=== PATIENT | male | born 1940 | race Caucasian/White ===

== ENCOUNTER 2018-07-22 16:43 | Inpatient (IN) | payer OTHER, MEDICAID ==
--- NOTE | 2018-07-22 17:45 | ED Physician Chart ---
ED Chief Complaint/HPI - Patient Information Date Seen:: 07/22/18 Time Seen:: 17:20 Chief Complaint:: altered mental status History of Present Illness:: For last 2 weeks patient's had insomnia. He's been dizzy and clumsy but has not fallen. According to his daughter he appears slightly confused also. 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 He says he cannot sleep because his mind is racing. Dr. Carreno sent the patient directly here from her office. Allergies:: Allergies Allergy/AdvReac Type Severity Reaction Status Date / Time No Known Allergies Allergy Verified 07/22/18 17:00 Vitals:: Vital Signs - 8 hr 07/22/18 17:02 Temp 99.4 F HR 84 RR 16 BP 172/00 O2 Sat % 97 Historian:: Patient, Family Member Review:: Nurse's Note Reviewed ED Review of Systems - Review of Systems General/Constitutional: No fever, No chills Skin: No skin lesions Head: No headache Eyes: No loss of vision ENT: No earache Neck: No neck pain, No swelling Cardio Vascular: No chest pain Pulmonary: SOB GI: No nausea, No vomiting, No diarrhea Musculoskeletal: No back pain, No muscle pain Psychiatric: Prior psych history Hematopoietic: No bruising Allergic/Immuno: No urticaria Neurological: No syncope ED Past Medical History - Past Medical History Past Medical History: Other (anxiety and depression) Family History: None Social History: Non Smoker, No Alcohol Surgical History: other (thyroidectomy; right knee replacement; cataract surgery right eye) Psychiatricy History: Depression, Other (anxiety) Medication: Reviewed Family Medical History - Family Member Mother History Unknown: Yes ED Physical Exam - Physical Examination General/Constitutional: Awake, Well-developed, well-nourished, Alert Other Gen/Cons comments:: Patient is alert and oriented to the correct month and year but not the date Head: Atraumatic Eyes: Lids, conjuctiva normal Other Eyes comments:: Right eyes status post cataract surgery Skin: Nl inspection, No rash, No skin lesions, No ecchymosis ENMT: External ears, nose nl, Nasal exam nl, Oropharynx nl Other ENMT comments:: Poor dental hygiene Neck: No nuchal rigidity Respiratory: Nl effort/Exclusion, Clear to Auscultation, No Wheeze/Rhonchi/Rales Cardio Vascular: RRR, No murmur, gallop, rubs GI: No tenderness/rebounding/guarding, No organomegaly, No hernia, Nondistended , No mass/bruits Extremities: Normal digits & nails Neuro/Psych: Alert/oriented, No focal deficits Other Neuro/Psych comments:: Strong equal hand grasp; finger to nose test intact ED Labs/Radiology/EKG Results - Lab Results Results: Laboratory Results - last 24 hr 07/22/18 07/22/18 07/22/18 17:45 17:45 17:45 WBC 6.8 RBC 4.16 Hgb 13.5 Hct 39.8 L MCV 95.6 MCH 32.3 H MCHC Differential 33.8 RDW 12.1 Plt Count 290 MPV 7.2 Neutrophils % 80.7 H Lymphocytes % 12.0 L Monocytes % 6.1 Eosinophils % 0.5 Basophils % 0.7 Sodium 136 Potassium 3.8 Chloride 104 Carbon Dioxide 22.8 Anion Gap 13.0 BUN 24 Creatinine 1.0 Est GFR ( Amer) TNP Est GFR (Non-Af Amer) TNP BUN/Creatinine Ratio 24.0 Glucose 178 H Calcium 9.6 Total Bilirubin 0.4 AST 18 ALT 15 Alkaline Phosphatase 51 Troponin I Total Protein 6.7 Albumin 4.0 L Globulin 2.7 Albumin/Globulin Ratio 1.5 Triglycerides 102 Cholesterol 160 LDL Cholesterol Direct 98 HDL Cholesterol 50 TSH 1.27 07/22/18 17:45 WBC RBC Hgb Hct MCV MCH MCHC Differential RDW Plt Count MPV Neutrophils % Lymphocytes % Monocytes % Eosinophils % Basophils % Sodium Potassium Chloride Carbon Dioxide Anion Gap BUN Creatinine Est GFR ( Amer) Est GFR (Non-Af Amer) BUN/Creatinine Ratio Glucose Calcium Total Bilirubin AST ALT Alkaline Phosphatase Troponin I 0.01 Total Protein Albumin Globulin Albumin/Globulin Ratio Triglycerides Cholesterol LDL Cholesterol Direct HDL Cholesterol TSH - Radiology Results Results: CT head showed atrophy only - EKG Interpretations Rate & Rhythm: normal sinus rhythm with a rate of 71 [place]: normal axis ED Septic Shock - . Is Septic Shock (SBP<90, OR Lactate>4 mmol\L) present?: No - <6hrs of presentation: Vital Signs: Vital Signs - 8 hr 07/22/18 17:02 Temp 99.4 F HR 84 RR 16 BP 172/00 O2 Sat % 97 ED Reassessment (Disposition) - Reassessment Reassessment:: Patient given authorization by his HMO to be admitted to [facility] [facility]. I spoke to Dr. Kinney who said the consult should be to the psychiatrist whom the patient waants who is Dr. Perla Reassessment Condition:: Unchanged - Diagnosis Diagnosis:: Insomnia; altered mental status; hyperglycemia; probable new-onset diabetes - Patient Disposition Admitted to:: [facility] Spoke to:: Meek Kinney Admitting Medical Physician:: Meek Kinney Admitting Psych Physician:: Leanna Perla Condition at Disposition:: Stable, Unchanged
[2018-07-22 17:54] LABS: % BASOPHILS 0.7 % (0.0-2.0); % EOSINOPHILS 0.5 % (0.0-5.0); % MONOCYTES 6.1 % (2.0-10.0); % NEUTROPHILS 80.7 % (40.0-80.0); HEMATOCRIT 39.8 % (41.0-60); HEMOGLOBIN 13.5 gm/dL (12-16); LYMPHOCYTE ABSOLUTE 0.8 Th/cmm (1.5-3.0); MEAN CELL VOLUME 95.6 fl (80-99); MEAN CORPUSCULAR HEMOGLOBIN 32.3 pg (27.0-31.0); MEAN CORPUSCULAR HGB CONC 33.8 pg (28.0-36.0); MEAN PLATELET VOLUME 7.2 fl; MONOCYTE ABSOLUTE 0.4 Th/cmm (0.3-1.0); NEUTROPHILE ABSOLUTE 5.6 Th/cmm (1.8-8.0); PLATELET COUNT 290 Th/cmm (150-400); RED BLOOD COUNT 4.16 Mil/cmm (3.80-5.80); RED CELL DISTRIBUTION WIDTH 12.1 % (11.5-20.0); WHITE BLOOD COUNT 6.8 Th/cmm (4.8-10.8)
[2018-07-22 18:11] LABS: ALB/GLOB RATIO 1.5 (1.0-1.8); ALKALINE PHOSPHATASE 51 U/L (34-104); BILIRUBIN,TOTAL 0.4 mg/dL (0.3-1.0); BUN - UREA NITROGEN 24 mg/dL (7-25); CALCIUM SERUM 9.6 mg/dL (8.6-10.3); CARBON DIOXIDE 22.8 mEq/L (21.0-31.0); CHLORIDE 104 mEq/L (98-107); CHOLESTEROL 160 mg/dL (<200); GLUCOSE 178 mg/dL (70-105); HDL -HIGH DENSITY LIPOPROTEIN 50 mg/dL (23-92); POTASSIUM SERUM 3.8 mEq/L (3.5-5.1); SGOT 18 U/L (13-39); SGPT/ALT 15 U/L (7-52); SODIUM SERUM 136 mEq/L (136-145); TOTAL PROTEIN,SERUM 6.7 gm/dL (6.0-8.3); TRIGLYCERIDES 102 mg/dL (<150)
[2018-07-22 22:01] VITALS: BP 139/62
[2018-07-22] MEDS ORDERED: Maalox 30 mL Cup PO PRN (22:26)
[2018-07-22] MEDS ORDERED: Magnesium Hydroxide (MOM) 30 mL UDC PO PRN (22:26)
[2018-07-23] MEDS: Multivitamin Tab PO SCH (08:25)
--- NOTE | 2018-07-23 08:52 | Diagnostic Imaging Report ---
CT scan of the brain without intravenous contrast HISTORY: Altered mental status Total DLP equals 723 CTDI equals 38.7 Axial sections were obtained from the base of the skull to the vertex. There is prominence/enlargement of the ventricular system size. Associated enlargement of cerebral sulci and subarachnoid cisterns. Findings are consistent with changes of generalized cerebral atrophy. No acute parenchymal abnormalities. No acute cerebral hemorrhage. Hypodensity is seen within the supratentorial white matter regions without mass effect. The findings may be associated with chronic small vessel ischemic disease. No extra-axial masses or abnormal fluid collections. IMPRESSION: 1. No acute abnormalities 2. Cerebral atrophy 3. Supratentorial white matter changes that may reflect chronic small vessel ischemic disease
--- NOTE | 2018-07-23 11:31 | History & Physical ---
ADMIT DATE: 07/22/2018 IDENTIFYING INFORMATION: This is a 78-year-old male. CHIEF COMPLAINT: "I have not been sleeping." REASON FOR ADMISSION: The patient was sent from my office because of confusion, probably delirium. HISTORY OF PRESENT ILLNESS: The patient was seen in my office today, came with his daughter for the first time. I have been seeing her for the past few years. Apparently, he has been sleeping well and apparently he saw his medical doctor the day before give him melatonin. He was able to sleep, but his mind keeps racing and this information was mainly by his daughter. The patient sat in the office for almost half an hour, could not make sense. He has been dizzy, clumsy. He has been confused, was unable to tell me the date, unable to work for the last 2 weeks. He denies any auditory or visual hallucinations. The patient was sent to the Emergency Room. I talked to Dr. kramer and told him that he was notacting right,not the same person that I knew him, but he was acting very weird and unable to participate in a meaningful conversation. He would go rambles, cannot give any information or tell me the date, where he is, why he is here. PAST PSYCHIATRIC HISTORY: Bipolar disorder, has been seeing this patient for a while, has been on Seroquel. MEDICAL HISTORY: The patient was cleared by Dr. kramer apparently had a CT scan of the head that showed chronic ischemic changes of the brain and cerebral atrophy. ALLERGIES: He has no known drug allergies. He had the lab work that showed low hematocrit and low MCH. However, his hemoglobin was within normal range and red cells. He has high neutrophil, low lymphocytes. Chemistry panel with high blood sugar and low albumin. TSH within normal range. The patient was on Seroquel, but however, stopped taking it. Start taking melatonin. FAMILY AND SOCIAL HISTORY: The patient is . 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 He continues to work, has not worked in the past 2 weeks. Apparently, the patient has a stressor of having to live in a trailer with 9 people lived there. Apparently, his daughter and his children live with them, has been very stressful for him. Denies any substance abuse. No history of abuse, and this is from my evaluation form in the office today, was unable to tell me much information. MENTAL STATUS EXAMINATION: The patient is appropriately dressed, not well groomed. He was alert, unable to tell me the date, where he is, why he is here. Apparently in the process of being very restless overnight. He_apparently ende up cutting few of his toenails by smashing foot in the door and they have been investigating it. He is unable to participate in meaningful conversation. He is confused, unable to tell me the date, where he is, why he is here. His insight about his illness is poor, does not realize that his problem. Judgment is poor with his behavior. IMPRESSION: AXIS I: Psychosis, not otherwise specified, bipolar disorder with psychosis. MEDICAL DIAGNOSIS: Deferred to the medical doctor. His assets, he is at the same treatment. Negative poor coping skills. INITIAL TREATMENT PLAN: The patient will be started on Depakote. We will do group therapy, milieu therapy, and individual therapy. ESTIMATED LENGTH OF STAY: 7-10 days. DISCHARGE CRITERIA: Decrease agitation, psychosis after discharge, outpatient treatment. JOB# [id number] [facility]
--- NOTE | 2018-07-23 20:38 | History & Physical ---
ADMIT DATE: PATIENT IDENTIFICATION: A 78-year-old male. CHIEF COMPLAINT: "Doctor I have trouble falling asleep." HISTORY OF PRESENT ILLNESS: A 78-year-old [place]ron[place] male, who has been followed by myself in my office. Also, he has significant psychotic illness. He has been followed by psychiatrist, seen by Dr. Marinelli in her office, and the patient was complaining about the patient was unable to sleep and having period of agitation. The patient was sent to Emergency Room. The patient was seen by Emergency Room MD. The patient was medically cleared and now transferred to Geropsych unit. PAST MEDICAL HISTORY: Remarkable for: 1. DJD. 2. Psychotic disorder. 3. Hypertension. MEDICATIONS AT HOME: Seroquel. ALLERGIES: None. SOCIAL HISTORY: The patient lives with family. No history of smoking cigarette, alcohol, or drug use. FAMILY MEDICAL HISTORY: Remarkable for hypertension and coronary artery disease. PAST SURGICAL HISTORY: Remarkable for cataract surgery as well as knee replacement and the patient also has previous history of thyroidectomy. REVIEW OF SYSTEMS: The patient denies any headache, blurred vision, double vision, dysphagia, odynophagia, runny nose, stuffy nose, fever, chills, cough, chest pain, shortness of breath, palpitation, dizziness, nausea, vomiting, diarrhea, dysuria, hematuria, hematochezia, or melena. No seizure or syncopal episode. PHYSICAL EXAMINATION: GENERAL: Alert, awake, oriented, lying in the bed without any acute distress. VITAL SIGNS: Temperature 98.1, pulse 73, respiratory rate 18, blood pressure 130/70. HEENT: Normocephalic, atraumatic. Extraocular muscles are intact. Tongue were pink and coated. Poor dentition noted. No oral, no exudate, no sinus tenderness. NECK: Supple, no JVD, no hepatojugular reflex. No lymphadenopathy, thyromegaly or carotid bruit. HEART: Both heart sounds are regular. No S3, no S4, no murmur. CHEST AND LUNGS: Equal in expansion, no expiratory wheezing. ABDOMEN: Soft. No guarding, no rigidity. Liver and spleen palpable. No palpable mass. EXTREMITIES: No edema, no cyanosis, no clubbing. . No calf tenderness noted. . NEUROLOGIC: Nonfocal. CLINICAL IMPRESSION: 1. Psychotic disorder. 2. Insomnia. 3. History of cataract surgery and knee surgery. 4. Hypertension, currently normotensive. 5. Degenerative joint disease. PLAN: 1. Psychotic evaluation and management deferred to psychiatrist. 2. The patient is medically stable to participate in the activity provided by Geropsych Unit. 3. The patient has been advised to follow upon discharge in my office. 4. Care plan reviewed and discussed with staff. [facility]# [id number]
[2018-07-24] MEDS: Multivitamin Tab PO SCH (08:37)
[2018-07-24] MEDS: OLANZapine 5 mg Oral Disintegrating Tab PO SCH (20:53)
[2018-07-25] MEDS: Multivitamin Tab PO SCH (09:14)
--- NOTE | 2018-07-25 18:23 | Progress Notes ---
DATE: 07/24/2018 SUBJECTIVE: The patient was seen and evaluated. The patient's chart reviewed. Covering for Dr. Marinelli. IDENTIFYING DATA: A 78-year-old male. HISTORY OF PRESENT ILLNESS: He was brought in initially by his mother for the first time. Recently, the patient has been found to have racing thoughts, disorganized, and unable to engage in linear conversation. In the hospital course, the patient will be started on Zyprexa and also on Depakote. Today on [id number] evaluation, the patient reports he has not been sleeping well and his thoughts are just racing thoughts and feels distraught and overwhelmed. CURRENT MEDICATION: The patient is on Ativan q. 4 hours as needed, olanzapine 5 mg p.o. at bedtime, Ambien as needed, and Depakote 250 mg p.o. b.i.d. MENTAL STATUS EXAMINATION: Racing thoughts, pressured speech, poor insight, and judgment. ASSESSMENT AND PLAN: The patient is 78-year-old male, who presents in a manic state. We will continue with the current medication regimen, which was recently initiated in the last 24 hours at the start of the patient's symptoms. JOB# [id number]
[2018-07-25] MEDS: OLANZapine 5 mg Oral Disintegrating Tab PO SCH (21:11)
--- NOTE | 2018-07-26 02:45 | Progress Notes ---
DATE: 07/25/2018 Covering for [facility]. Today on [id number] evaluation, the patient continues to derail in conversation, racing thoughts, irritable, agitated. MENTAL STATUS EXAMINATION: Still with flight of ideas, poor sleep, insomnia. ASSESSMENT AND PLAN: The patient is a 78-year-old with manic episode tolerating the recent augmentation of the Depakote and olanzapine without complications or side effects. The patient will continue with the current medication regimen as he continues to be in steady state and check Depakote levels in the next 24-48 hours. JOB# [id number]
[2018-07-26] MEDS: Multivitamin Tab PO SCH (08:56)
--- NOTE | 2018-07-26 20:47 | Progress Notes ---
DATE: 07/26/2018 Case was discussed with staff of the patient, reviewed records. The patient continues to be unable to carry a conversation and make sense. Continues to be rambling. Continues to be unpredictable, impulsive, unable to tell me how much he slept. The staff reports he slept better. He continues to have racing thoughts. I will be increasing his Zyprexa dose to 7.5 mg at bedtime to improve his psychotic symptoms and manic symptoms and so far no side effects to the medications, no sedation, no nausea, no extrapyramidal symptoms. His lab work showed low hematocrit, low MCH, high neutrophils and low lymphocytes, the rest within normal range. Chemistry found with high blood sugar, low albumin, the rest within normal range. TSH within normal range. We will continue outpatient group therapy, milieu therapy, adjust the medication as needed. JOB# [id number]
[2018-07-26] MEDS ORDERED: OLANZapine 5 mg Oral Disintegrating Tab PO SCH (21:00)
[2018-07-27] MEDS: Multivitamin Tab PO SCH (09:00)
--- NOTE | 2018-07-28 02:06 | Discharge Summary ---
DATE OF DISCHARGE: 07/27/2018 Age: 78. SEX: Male. PHYSICIAN: Dr. Johnson. FINAL DIAGNOSIS/PRIMARY DIAGNOSIS: Unspecified psychosis. SECONDARY DIAGNOSIS: Dementia, moderate, with psychotic features. REASON FOR HOSPITALIZATION: The patient was admitted to the hospital because of increased paranoia and increased psychosis. The patient also was agitated and was not able to follow directions at home. HOSPITAL COURSE: The patient continued to be suspicious and paranoid. Dr. Marinelli adjusted his psychotropic medications. The patient was less irritable and less agitated and he was cooperative and compliant with taking his medications. It also was easier to redirect him and the patient was discharged from the hospital. Physical exam of the patient came basically as mentioned on the axis 3 of final diagnosis. Blood workup was also basically within normal. EXPECTED OUTCOME AFTER DISCHARGE: Fair if the patient continues to take his medications and follow up with discharge plans. [facility]# [id number]
== END 2018-07-27 18:30 | disposition home or self-care (01) | DRG 885 ==
LOC: ER 16:43 → GERO2 20:40
PROVIDERS: ADMIT Psychiatry & Neurology Psychiatry; ATTEND Psychiatry & Neurology Psychiatry
DX: F31.9 Bipolar disorder, unspecified (principal); F03.91 Unspecified dementia, unspecified severity, with behavioral disturbance; F29 Unspecified psychosis not due to a substance or known physiological condition; G47.00 Insomnia, unspecified; R73.9 Hyperglycemia, unspecified; F41.9 Anxiety disorder, unspecified; M19.90 Unspecified osteoarthritis, unspecified site; I10 Essential (primary) hypertension; Z79.899 Other long term (current) drug therapy; Z82.49 Family history of ischemic heart disease and other diseases of the circulatory system; Z96.651 Presence of right artificial knee joint; Z98.41 Cataract extraction status, right eye
CPT/HCPCS: 36415-UA; 70450-TC; 80053-TC; 80061-TC; 82948-90; 83036-90; 84443-TC; 84484-TC; 85025-TC; 86592-TC; 90899; 93005; G0410; Z7610